=== PATIENT | female | born 1995 | race Two or more races ===

== ENCOUNTER 2022-04-09 21:18 | Inpatient (IN) | payer BC ==
[~2022-04-09] VITALS: Ht 157.5 cm; Wt 58.5 kg
--- NOTE | 2022-04-09 21:31 | NUR ---
BIBFRIEND C/O ABD PAIN +N/V SINCE 1329. A/OX4. TOLERATING R/A WELL WITH NO RESP DISTRESS. SAFETY MEASURES IN PLACE.
--- NOTE | 2022-04-09 21:36 | NUR ---
URINE COLLECTED AND SENT TO LAB
[2022-04-09] MEDS ORDERED: ONDANSETRON HCL/PF 4 MG/2 ML VIAL ONE (21:41)
[2022-04-09] MEDS ORDERED: MORPHINE SULFATE INJ 4 MG/ML DISP.SYRIN ONE (21:41)
[2022-04-09 21:56] LABS: BASOPHILS # (AUTO) 0.1 K/uL (0.0-0.2); BASOPHILS % (AUTO) 0.4 % (0.0-2.0); EOSINOPHILS % (AUTO) 0.6 % (0.0-6.0); HEMATOCRIT 39 % (33-45); HEMOGLOBIN 12.7 g/dL (11.5-14.8); LYMPHOCYTES # (AUTO) 1.7 K/uL (0.8-4.8); LYMPHOCYTES % (AUTO) 9.3 % (20.0-44.0); MEAN CORPUSCULAR HGB CONC 32 g/dl (31.0-36.0); MEAN CORPUSCULAR VOLUME 91 fL (82-100); MONOCYTES # (AUTO) 1.3 K/uL (0.1-1.30); MONOCYTES % (AUTO) 7.1 % (2.0-12.0); NEUTROPHILS # (AUTO) 14.9 K/uL (1.8-8.9); NEUTROPHILS % (AUTO) 82.6 % (43.0-81.0); PLATELET COUNT (AUTO) 251 K/uL (150-450); RED BLOOD CELL COUNT(AUTO) 4.33 MIL/uL (4.0-5.2); WHITE BLOOD COUNT (AUTO) 18.1 K/uL (4.3-11.0)
[2022-04-09] MEDS ORDERED: ONDANSETRON HCL/PF 4 MG/2 ML VIAL IVP ONE (22:00)
[2022-04-09] MEDS ORDERED: IV NS 0.9% 1,000 ML BAG IV ONE (22:00)
[2022-04-09] MEDS ORDERED: MORPHINE SULFATE INJ 2 MG/ML DISP.SYRIN IV ONE (22:00)
[2022-04-09 22:07] LABS: BILIRUBIN,URINE 1+ (NEGATIVE); COLOR,URINE YELLOW (YELLOW); LEUKOCYTE ESTERASE ,URINE NEGATIVE (NEGATIVE); NITRITE, URINE NEGATIVE (NEGATIVE); PROTEIN,URINE NEGATIVE (NEGATIVE); UGLUCOSE NEGATIVE (NEGATIVE); UROBILINOGEN,URINE 0.2 EU/dL (0.2)
[2022-04-09 22:08] LABS: ALBUMIN 4.4 g/dL (3.4-5.0); BILIRUBIN,DIRECT 0.1 mg/dL (0.0-0.2); BILIRUBIN,TOTAL 0.5 mg/dL (0.2-1.0); CALCIUM, SERUM 9.2 mg/dL (8.5-10.1); CREATININE 0.7 mg/dL (0.6-1.3); POTASSIUM 3.8 mmol/L (3.5-5.1); TOTAL PROTEIN, SERUM 8.1 g/dL (6.4-8.2)
--- NOTE | 2022-04-09 22:10 | NUR ---
US TECH AT PT'S BEDSIDE
--- NOTE | 2022-04-09 22:23 | NUR ---
COVID ANTIGEN SWAB COLLECTED AND SENT TO LAB
[2022-04-09 22:42] LABS: BACTERIA,URINE 1+ /HPF (None Seen); MUCUS,URINE Few /LPF (None Seen)
[2022-04-09] MEDS ORDERED: IOHEXOL-300 100 ML VIAL IV ONE (22:51)
--- NOTE | 2022-04-09 23:46 | NUR ---
DR. ROME PAGED FOR SURGICAL CONSULT.
--- NOTE | 2022-04-09 23:51 | NUR ---
TORSTEN RUTLEDGE ON THE PHONE WITH DR. OLIVAS FOR PANEL
[2022-04-09] MEDS ORDERED: LEVOFLOXACIN 750 MG /D5W 150ML 150 ML IV ONE (23:59)
[2022-04-10] MEDS ORDERED: LEVOFLOXACIN 750 MG /D5W 150ML 750 MG in PREMIX 1 EA IV SCH ×2
--- NOTE | 2022-04-10 00:04 | NUR ---
REPORT GIVEN TO DANETTE PAINTER FOR GEE
[2022-04-10] MEDS ORDERED: METRONIDAZOLE 500MG/ NS 100ML 100 ML IV ONE (00:06)
--- NOTE | 2022-04-10 00:09 | NUR ---
PT TRANSFERRED TO [address] [place] [address] VIA HOSPITAL PROTOCOL. VSS. ALL BELONGINGS WITH PT.
[2022-04-10] MEDS ORDERED: MAGNESIUM HYDROXIDE 30 ML UDC PO PRN (01:00)
[2022-04-10] MEDS ORDERED: Z GUARD REMEDY 4 OZ OINT TP PRN (01:00)
[2022-04-10] MEDS ORDERED: ONDANSETRON HCL/PF 4 MG/2 ML VIAL IVP PRN (01:00)
[2022-04-10] MEDS ORDERED: HYDROCODONE/APAP 5/325MG TABLET PO PRN (01:00)
[2022-04-10] MEDS ORDERED: MAG HYDROX/AL HYDROX/SIMETH 30 ML UDC PO PRN (01:00)
[2022-04-10] MEDS ORDERED: ACETAMINOPHEN 325 MG TABLET PO PRN ×2 (01:00→22:00)
[2022-04-10] MEDS ORDERED: ZOLPIDEM TARTRATE 5 MG TABLET PO PRN (01:00)
--- NOTE | 2022-04-10 01:00 | NUR ---
MS RN ADMITTING NOTE RECEIVED PATIENT FROM ER VIA [facility] AT 0005H, PATIENT IS ALERT AND ORIENTED X 4; ON ROOM AIR BREATHING EVENLY AND NO RESPIRATORY DISTRESS NOTED; VITAL SIGNS TAKEN; PATIENT ORIENTED TO STAFF AND ROOM; ENCOURAGED VERBALIZATION OF NEEDS; WITH IV ACCESS IN RAC WITH ONGOING LEVAQUIN, INTACT AND INFUSING WELL; SAFETY PRECAUTIONS IMPLEMENTED, BED IN LOW POSITION, LOCKED, SIDE RAILS UP X 3, CALL LIGHT WITHIN EASY REACH; WILL CONTINUE TO MONITOR THROUGHOUT SHIFT
[2022-04-10] MEDS: IV NS 0.9% 1,000 ML IV PRN ×2 (01:28→16:13)
[2022-04-10 01:30] VITALS: BP 100/54
[2022-04-10] MEDS ORDERED: MORPHINE SULFATE INJ 4 MG/ML DISP.SYRIN IV PRN (01:30)
[2022-04-10] MEDS ORDERED: METRONIDAZOLE 500MG/ NS 100ML 500 MG in PREMIX 1 EA IV SCH ×3 (02:00)
[2022-04-10 05:50] LABS: BASOPHILS # (AUTO) 0.1 K/uL (0.0-0.2); BASOPHILS % (AUTO) 0.4 % (0.0-2.0); EOSINOPHILS % (AUTO) 0.9 % (0.0-6.0); HEMATOCRIT 35 % (33-45); HEMOGLOBIN 11.5 g/dL (11.5-14.8); LYMPHOCYTES # (AUTO) 2.9 K/uL (0.8-4.8); LYMPHOCYTES % (AUTO) 18.4 % (20.0-44.0); MEAN CORPUSCULAR HGB CONC 33 g/dl (31.0-36.0); MEAN CORPUSCULAR VOLUME 90 fL (82-100); MONOCYTES # (AUTO) 1.2 K/uL (0.1-1.30); MONOCYTES % (AUTO) 7.8 % (2.0-12.0); NEUTROPHILS # (AUTO) 11.3 K/uL (1.8-8.9); NEUTROPHILS % (AUTO) 72.5 % (43.0-81.0); PLATELET COUNT (AUTO) 215 K/uL (150-450); RED BLOOD CELL COUNT(AUTO) 3.86 MIL/uL (4.0-5.2); WHITE BLOOD COUNT (AUTO) 15.6 K/uL (4.3-11.0)
[2022-04-10 06:24] LABS: CALCIUM, SERUM 8.5 mg/dL (8.5-10.1); CREATININE 0.7 mg/dL (0.6-1.3); POTASSIUM 3.8 mmol/L (3.5-5.1)
--- NOTE | 2022-04-10 06:52 | NUR ---
MS RN CLOSING NOTE PATIENT IS ALERT AND ORIENTED X 4, ON ROOM AIR BREATHING EVENLY, TOLERATING WELL AND NO DISTRESS NOTED; WITH IV ACCESS ON RAC G18, INTACT AND PATENT WITH NORMAL SALINE INFUSING AT 75 ML/HR; ADMINISTERED MEDICATIONS PRESCRIBED; PATIENT'S NEEDS ATTENDED; MONITORED ACCORDINGLY; ENCOURAGED VERBALIZATION OF NEEDS; WILL ENDORSE TO AM NURSE FOR CONTINUITY OF CARE
[2022-04-10 08:00] VITALS: BP 95/53
--- NOTE | 2022-04-10 08:12 | NUR ---
RN OPENING NOTE PATIENT AWAKE IN BED RESTING, A/O X 4. NO S/S OF PAIN NOTED AT THIS TIME. ON ROOM AIR, NO DISTRESS OR SHORTNESS OF BREATH NOTED. IV ACCESS RAC #18G, INTACT, PATENT AND FLUSHING WELL. FALL AND SAFETY MEASURES IN PLACE, BED ALARM ON, BED IN LOW AND LOCK POSITION, CALL LIGHT AND TABLE WITHIN EASY REACH, SIDE RAILS UP X2. WILL CONTINUE TO MONITOR
--- NOTE | 2022-04-10 10:01 | NUR ---
RN NOTE DOCTOR WILD WAS AT PATIENT BEDSIDE AND ORDERED CONSENT FOR LAPAROSCOPY APPENDECTOMY POSSIBLE OPEN EXPLORATORY, CONSENT ORDER WAS PLACED AND SIGNATURE OBTAINED FROM PATIENT.
[2022-04-10] MEDS: METRONIDAZOLE 500MG/ NS 100ML 500 MG in PREMIX 1 EA IV SCH ×2 (12:31→21:08)
[2022-04-10] MEDS ORDERED: LIDOCAINE HCL/MPF 1% 30 ML VIAL IJ ONE (16:55)
[2022-04-10] MEDS ORDERED: BUPIVACAINE MPF 0.5% W/EPI INJ 30 ML VIAL ONE (16:55)
[2022-04-10] MEDS ORDERED: FENTANYL PF 250MCG/5ML AMPUL ONE (17:31)
[2022-04-10] MEDS ORDERED: FAMOTIDINE/PF INJ 20 MG/2 ML VIAL IV ONE (17:32)
[2022-04-10] MEDS ORDERED: MIDAZOLAM HCL 2 MG/2ML VIAL ONE (17:32)
[2022-04-10] MEDS ORDERED: ROCURONIUM BROMIDE 50 MG/5 ML ONE (17:33)
[2022-04-10] MEDS ORDERED: CLINDAMYCIN 600 MG in IV D5W 50 ML IV ONE (18:00)
--- NOTE | 2022-04-10 18:00 | NUR ---
RN NOTE PATIENT 1800 CLINDAMYCIN WAS NOT ADMINISTERS AT MED SURG. CLINDAMYCIN WAS ORDERED BY DOCTOR AND WILL BE ADMINISTERED AT OR. PHARMACY AND OR NURSE INFORMED.
--- NOTE | 2022-04-10 18:15 | NUR ---
RN NOTE PATIENT IS NOT IN ROOM, PATIENT WAS TAKEN BY THE OR NURSE. PATIENT SCHEDULED FOR SURGERY WITH DR. ROME @ 19:00 (LAPAROSCOPY APPENDECTOMY POSSIBLE OPEN EXPLORATORY).
--- NOTE | 2022-04-10 18:59 | NUR ---
RN CLOSING NOTE PATIENT WAS TAKEN BY OR NURSE FOR SURGERY. PATIENT IS A/O X 4. NO S/S OF PAIN NOTED BEFORE LEAVING TO SURGERY. PATIENT WAS ON ROOM AIR, NO DISTRESS OR SHORTNESS OF BREATH NOTED. IV ACCESS RAC #18G, INTACT, PATENT AND FLUSHING WELL, RUNNING NS @ 75ML/HR. SCHEDULE MEDICATIONS ADMINISTERED. FALL AND SAFETY MEASURES IN PLACE WHILE PATIENT WAS IN HER ROOM, BED ALARM ON, BED IN LOW AND LOCK POSITION, CALL LIGHT AND TABLE WITHIN EASY REACH, SIDE RAILS UP X2. ALL NEEDS ATTENDED AND ANTICIPATED. WILL ENDORSE TO HAND PLEATER NURSE.
--- NOTE | 2022-04-10 19:30 | NUR ---
noc rn note patient not in room during GEE. Still in OR.
[2022-04-10] MEDS ORDERED: BACITRACIN ZINC OINT PACKET 1 EA PACKET TP ONE (19:32)
[2022-04-10] MEDS ORDERED: MEPERIDINE25 MG SYR 25 MG/ML VIAL ONE (20:33)
[2022-04-10 20:53] VITALS: BP 112/75
--- NOTE | 2022-04-10 21:22 | NUR ---
NOC RN NOTE PATIENT BROUGHT UP BY 2 OR PERSONNEL AT AROUND 2044, STILL A LITTLE GROGGY, NO S/S OF APPARENT DISTRESS IN ROOM AIR. PAIN TOLERABLE AT THIS TIME PER PATIENT. 3 ABDOMINAL DRESSINGS CLEAN, DRY, AND INTACT WITH NO VISIBLE BLEEDING NOTED. RESTARTED ON IV NS @75MLS/HR AT THIS TIME. 2 FAMILY MEMBERS AT BED SIDE. POST-OP V/S STABLE: 112/75, HR-91, RR-18, T-98.1, SATURATION 99% IN ROOM AIR. WILL MONITOR.
[2022-04-10] MEDS ORDERED: GABAPENTIN 300 MG CAPSULE PO SCH (22:00)
[2022-04-10] MEDS ORDERED: CELECOXIB 100 MG CAPSULE PO SCH (22:00)
[2022-04-10] MEDS: ACETAMINOPHEN 325 MG TABLET PO SCH (22:03)
[2022-04-10] MEDS: GABAPENTIN 300 MG CAPSULE PO SCH (22:03)
[2022-04-10] MEDS: CELECOXIB 100 MG CAPSULE PO SCH (22:03)
[2022-04-10] MEDS: LEVOFLOXACIN 750 MG /D5W 150ML 750 MG in PREMIX 1 EA IV SCH (22:05)
--- NOTE | 2022-04-11 01:18 | NUR ---
noc rn note patient c/o 8/10 pain moaning, with facial grimacing. Given Morphine 4mg as ordered PRN. will re-assess.
[2022-04-11] MEDS ORDERED: LORAZEPAM 1 MG TABLET PO PRN (04:00)
--- NOTE | 2022-04-11 04:10 | NUR ---
noc rn note patient was panicking when I came in the room. complaining that her right side is tingling but nonradiating, generalized pain. upon assessment patient verified of having anxiety and panic attack. v/s as follows: 122/82, hr115, o2 100% on room air and t-97.5. started on o2 for patient comfort. messaged transportation agent Linden Banks and he ordered Ativan 1mg ONCE. order carried out. patient helped with ambulation as well to help with passing gas. led to bed safely. patient stable for now. will continue to monitor.
[2022-04-11] MEDS: ACETAMINOPHEN 325 MG TABLET PO SCH ×3 (05:02→20:52)
[2022-04-11] MEDS: GABAPENTIN 300 MG CAPSULE PO SCH ×3 (05:02→20:52)
[2022-04-11] MEDS: METRONIDAZOLE 500MG/ NS 100ML 500 MG in PREMIX 1 EA IV SCH ×3 (05:03→20:51)
[2022-04-11 06:25] LABS: BASOPHILS # (AUTO) 0.1 K/uL (0.0-0.2); BASOPHILS % (AUTO) 0.3 % (0.0-2.0); HEMATOCRIT 33 % (33-45); LYMPHOCYTES # (AUTO) 0.4 K/uL (0.8-4.8); LYMPHOCYTES % (AUTO) 1.8 % (20.0-44.0); MEAN CORPUSCULAR HGB CONC 33 g/dl (31.0-36.0); MEAN CORPUSCULAR VOLUME 92 fL (82-100); MONOCYTES # (AUTO) 1.3 K/uL (0.1-1.30); MONOCYTES % (AUTO) 5.5 % (2.0-12.0); NEUTROPHILS # (AUTO) 21.4 K/uL (1.8-8.9); NEUTROPHILS % (AUTO) 92.4 % (43.0-81.0); PLATELET COUNT (AUTO) 196 K/uL (150-450); RED BLOOD CELL COUNT(AUTO) 3.64 MIL/uL (4.0-5.2); WHITE BLOOD COUNT (AUTO) 23.2 K/uL (4.3-11.0)
[2022-04-11 07:15] LABS: CALCIUM, SERUM 8.4 mg/dL (8.5-10.1); CREATININE 0.8 mg/dL (0.6-1.3)
--- NOTE | 2022-04-11 07:30 | NUR ---
MS RN OPENING NOTES RECEIVED PATIENT ON BED RESTING AND A/O X4. ON ROOM AIR TOLERATING WELL. NO SOB NOTED. NOT IN DISTRESS. WITH COMPLAINTS OF MILD PAIN ON THE ABDOMEN AT THE SCALE OF 4/10. WITH IV ACCESS AT THE RIGHT AC G18 WITH IVF NS AT 75ML/HR INFUSING WELL. SAFETY MEASURES IN PLACED. CALL LIGHT WITHIN REACH. BED ON LOWEST LOCKED POSITION, SIDE RAILS UP X2. WILL CONTINUE TO MONITOR.
[2022-04-11] MEDS: CELECOXIB 100 MG CAPSULE PO SCH ×2 (08:42→20:52)
[2022-04-11 11:52] LABS: BAND % (MANUAL) 5 % (0.0-5.0); BASOPHILS % (MANUAL) 0 % (0.0-2.0); EOSINOPHILS % (MANUAL) 0 % (0-4); LYMPHOCYTES % (MANUAL) 4 % (16-48); MONOCYTES % (MANUAL) 5 % (0-11.0); NEUTROPHILS % (MANUAL) 86 (42-76)
[2022-04-11] MEDS: IV NS 0.9% 1,000 ML IV PRN (11:53)
--- NOTE | 2022-04-11 13:30 | NUR ---
RN NOTE PATIENT WAS ABLE TO PASS GAS AND WAS ABLE TO AMBULATE WITH HER FIANCE IN THE HALLWAY.
--- NOTE | 2022-04-11 13:49 | NUR ---
RN NOTE PATIENT IS COMPLAINING OF PAIN IN THE SURGICAL SITE OF THE ABDOMEN AT THE SCALE OF 7/10. NORCO 5-325MG WAS GIVEN PRN FOR PAIN. WILL MONITOR.
[2022-04-11 16:22] VITALS: BP 98/64
--- NOTE | 2022-04-11 18:55 | NUR ---
MS RN CLOSING NOTES PATIENT ON BED AWAKE AND A/O X4. ON ROOM AIR TOLERATING WELL. NO SOB NOTED. NOT IN DISTRESS. WITH NO COMPLAINTS OF PAIN OR DISCOMFORT AT THIS TIME. WITH IV ACCESS AT THE RIGHT AC G18 WITH IVF NS AT 75ML/HR INFUSING WELL. DUE MEDS GIVEN. SAFETY MEASURES IN PLACED. CALL LIGHT WITHIN REACH. BED ON LOWEST LOCKED POSITION, SIDE RAILS UP X2. WILL ENDORSE TO NEXT SHIFT FOR GEE.
--- NOTE | 2022-04-11 19:15 | NUR ---
noc rn opening received patient in bed, a/ox4. no s/s of apparent distress in room air. denies pain at this time per patient only when she moves/ambulates that she feels pain. 3 visitors in room at this time with patient. IV ns running @75mls/hr. call light within reach. safety in place. will continue with patient's plan of care.
[2022-04-11 20:00] VITALS: BP 95/68
--- NOTE | 2022-04-11 21:00 | NUR ---
noc rn note patient requesting Ativan for the night since she took it last night and helped her sleep without any adverse effect. Patient refused to take Ambien for sleep because she is afraid that she might get side effect from medication. Messaged production planning manager, Linden Banks and production planning manager ordered Restoril 15 mg. Patient refused to take as well. Per patient she will try to sleep naturally tonight.
[2022-04-11] MEDS: LEVOFLOXACIN 750 MG /D5W 150ML 750 MG in PREMIX 1 EA IV SCH (21:59)
--- NOTE | 2022-04-12 02:28 | NUR ---
noc rn note patient tolerated clear liquids, stating she even had 10 cups of chicken soup earlier without N/V. Diet advanced to soft for now, Charge nurse aware.
[2022-04-12] MEDS: GABAPENTIN 300 MG CAPSULE PO SCH ×2 (05:02→12:20)
[2022-04-12] MEDS: METRONIDAZOLE 500MG/ NS 100ML 500 MG in PREMIX 1 EA IV SCH (05:02)
[2022-04-12] MEDS: ACETAMINOPHEN 325 MG TABLET PO SCH ×2 (05:02→12:20)
[2022-04-12 05:51] LABS: BASOPHILS # (AUTO) 0.1 K/uL (0.0-0.2); BASOPHILS % (AUTO) 0.4 % (0.0-2.0); EOSINOPHILS % (AUTO) 1.1 % (0.0-6.0); HEMATOCRIT 30 % (33-45); HEMOGLOBIN 9.9 g/dL (11.5-14.8); LYMPHOCYTES # (AUTO) 2.3 K/uL (0.8-4.8); LYMPHOCYTES % (AUTO) 16.8 % (20.0-44.0); MEAN CORPUSCULAR HGB CONC 33 g/dl (31.0-36.0); MEAN CORPUSCULAR VOLUME 91 fL (82-100); MONOCYTES % (AUTO) 7.1 % (2.0-12.0); NEUTROPHILS # (AUTO) 10.4 K/uL (1.8-8.9); NEUTROPHILS % (AUTO) 74.6 % (43.0-81.0); PLATELET COUNT (AUTO) 168 K/uL (150-450); RED BLOOD CELL COUNT(AUTO) 3.28 MIL/uL (4.0-5.2); WHITE BLOOD COUNT (AUTO) 13.9 K/uL (4.3-11.0)
[2022-04-12 06:04] LABS: CALCIUM, SERUM 8.1 mg/dL (8.5-10.1); CREATININE 0.6 mg/dL (0.6-1.3); POTASSIUM 3.6 mmol/L (3.5-5.1)
--- NOTE | 2022-04-12 06:51 | NUR ---
noc rn closing note patient comfortably sleeping in bed, with no s/s of apparent distress. Pain well managed and did not ask for any pain medication throughout shift. all needs attended. all scheduled medications administered. IV ns running @75mls/hr at this time. will endorse to morning shift rn for continuity of care.
--- NOTE | 2022-04-12 07:15 | NUR ---
MS RN OPENING NOTES RECEIVED PATIENT SLEEPING IN BED, A/Ox4, ON ROOM AIR. NO S/S OF RESPIRATORY DISTRESS. PATIENT FIANCEE AT BEDSIDE. IV ACCESS R AC #18G RUNNING NS @75 ML/HR. INTACT AND PATENT. AMBULATORY, HAS BATHROOM PRIVILEGE. SKIN ISSUES: ABDOMINAL SURGERY SITE. DRESSING INTACT AND PATENT. SAFETY MEASURES IN PLACE: BED LOCKED AND IN LOWEST POSITION, HOB ELEVATED, SIDE RAILS UPx2, CALL LIGHT WITHIN REACH WILL CONTINUE TO MONITOR.
[2022-04-12 08:00] VITALS: BP 112/68
[2022-04-12] MEDS: CELECOXIB 100 MG CAPSULE PO SCH (08:36)
[2022-04-12] MEDS: IV NS 0.9% 1,000 ML IV PRN (08:38)
[2022-04-12] MEDS ORDERED: LEVO500T90 PO (11:47)
[2022-04-12] MEDS ORDERED: ONDA4TAB5 PO (11:47)
[2022-04-12] MEDS ORDERED: HYDR-3972 PO ×3 (11:47→18:30)
--- NOTE | 2022-04-12 12:45 | NUR ---
QUILL MACHINE TENDER NOTES PATIENT D/C HOME, STABLE ON ROOM AIR NO S/S OF RESPIRATORY DISTRESS. A/Ox4 ABLE TO MAKE NEEDS KNOWN. PATIENT IV ACCESS REMOVED, PRESSURE DRESSING APPLIED, ID BAND REMOVED. PATIENT GIVEN DISCHARGE INSTRUCTIONS AND HEALTH TEACHINGS, PATIENT VERBALIZED UNDERSTANDING. ALL FORMS SIGNED AND PLACED IN CHART. PATIENT SKIN ISSUES: SURGICAL SITE, NO PHOTO TAKEN DUE PATIENT REFUSING. PATIENT LEFT WITH FAMILY VIA WHEELCHAIR ACCOMPANIED BY MARILYN HAINES @5912. CHARGE NURSE AND MD AWARE OF DISCHARGE.
--- NOTE | 2022-04-12 15:30 | NUR ---
RN NOTES PATIENT'S MOTHER CHETNA, CALLED HOSPITAL SAYING THAT PREFERRED PHARMACY DID NOT CARRY HYDROCODONE. ATTEMPTED TO FIND OTHER PHARMACY, NEW PHARMACY ADDED TO PATIENT'S PREFERRED PHARMACY, DR. DAWSON NOTIFIED. FAMILY NOTIFIED.
--- NOTE | 2022-04-12 18:30 | NUR ---
RN NOTES PATIENT'S MOTHER CHETNA CALLED AGAIN, ASKING IF PHARMACY WAS NOTIFIED. EXPLAINED THAT DR. DAWSON WILL SEND SOON POSSIBLE AND WILL NOTIFY FAMILY. OFFERED EPIC NUMBER, WANTED TO SPEAK WITH NURSING TELEPHONE SURVEYOR. TELEPHONE SURVEYOR NOTIFIED AND FAMILY TRANSFERRED. DR. DAWSON NOTIFIED THAT PRESCRIPTION WAS SENT, NOTIFIED FAMILY. FAMILY EXPRESSED WANT FOR NEW PHARMACY. NEW PHARMACY ADDED AND DR. DAWSON NOTIFIED AGAIN. PRESCRIPTION SENT TO NEW PHARMACY AND FAMILY UPDATED.
[2022-04-14] MEDS ORDERED: METRONIDAZOLE 500MG/ NS 100ML 500 MG in PREMIX 1 EA IV SCH (02:00)
== END 2022-04-12 12:32 | disposition home or self-care (01) | DRG 343 ==
LOC: ER 21:19 → MED 23:47
PROVIDERS: ADMIT Nurse Practitioner Acute Care; ATTEND Nurse Practitioner Acute Care
PROC: 0DTJ4ZZ Resection of Appendix, Percutaneous Endoscopic Approach (ICD-10-PCS; principal; 2022-04-10)
DX: K35.80 Unspecified acute appendicitis (principal); Z20.822 Contact with and (suspected) exposure to COVID-19; Z88.0 Allergy status to penicillin; Z91.040 Latex allergy status; Z91.011 Allergy to milk products; K38.1 Appendicular concretions
CPT/HCPCS: 36415; 76705-TC; 80048-TC; 80076-TC; 81001; 83690-TC; 84703-TC; 85025-TC; 85730-TC; 86850-TC; 87081-TC; 88304-TC; A4216; C9803; G0378; J1100; J1956; J2175; J2250; J2270; J2405; J2704; J2765; J3010; J3490; J7030; J7060; Q9967